=== PATIENT | male | born 1945 | race Caucasian/White ===

== ENCOUNTER 2016-07-01 11:15 | Emergency (ER) | payer OTHER ==
--- NOTE | 2016-07-01 11:41 | ER Document Report ---
ED Medical Screen (RME) - General Chief Complaint: Difficulty Swallowing Stated Complaint: HEARTBURN Time seen by provider: 11:39 Notes: 71-year-old man presents to ED due to heartburn last night. 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 States she's having difficulty swallowing this morning and is concerned if he vomits he might aspirate. States cannot even keep down a small sip of water. I have greeted and performed a rapid initial assessment of this patient. A comprehensive ED assessment and evaluation of the patient, analysis of test results and completion of medical decision making process will be conducted by an additional ED providers. Physical Exam - Vital signs Vitals: Temp Pulse Resp BP Pulse Ox 100.1 F 112 H 18 146/78 H 96 07/01/16 11:36 07/01/16 11:36 07/01/16 11:36 07/01/16 11:36 07/01/16 11:36 Course - Vital Signs Vital signs: Temp Pulse Resp BP Pulse Ox 100.1 F 112 H 18 146/78 H 96 07/01/16 11:36 07/01/16 11:36 07/01/16 11:36 07/01/16 11:36 07/01/16 11:36
[2016-07-01 12:21] LABS: HEMATOCRIT 42.8 % (37.9-51.0); HEMOGLOBIN 14.4 g/dL (13.5-17.0); HGB HCT DIFFERENCE 0.4; MEAN CORPUSCULAR HEMOGLOBIN 32.5 pg (27.0-33.4); MEAN CORPUSCULAR HGB CONC 33.5 g/dL (32.0-36.0); MEAN CORPUSCULAR VOLUME 97 fl (80-97); RED BLOOD COUNT 4.42 10^6/uL (4.35-5.55); RED CELL DISTRIBUTION WIDTH 13.5 % (11.5-14.0); WHITE BLOOD COUNT 16.6 10^3/uL (4.0-10.5)
[2016-07-01 12:39] LABS: ALANINE AMINOTRANSFERASE 24 U/L (21-72); ALBUMIN 4.2 g/dL (3.5-5.0); ALKALINE PHOSPHATASE 66 U/L (38-126); ANION GAP 11 (5-19); ASPARTATE AMINO TRANSFERASE 20 U/L (17-59); BILIRUBIN,TOTAL 1.4 mg/dL (0.2-1.3); BLOOD UREA NITROGEN 15 mg/dL (7-20); CALCIUM 9.5 mg/dL (8.4-10.2); CARBON DIOXIDE 27 mmol/L (22-30); CHLORIDE 102 mmol/L (98-107); CREATININE RESULT 1.22 mg/dL (0.52-1.25); GLUCOSE 106 mg/dL (75-110); POTASSIUM 4.5 mmol/L (3.6-5.0); SODIUM 140.1 mmol/L (137-145); TOTAL PROTEIN 6.9 g/dL (6.3-8.2)
[2016-07-01] MEDS ORDERED: ACETAMINOPHEN SOLN 325 MG/10.15 ML UDCUP PO ONE (12:54)
[2016-07-01 12:57] LABS: BAND NEUTROPHILS % (MANUAL) 3 % (3-5); BASOPHILS % (MANUAL) 0 % (0-2); EOSINOPHILS % (MANUAL) 0 % (0-6); LYMPHOCYTES % (MANUAL) 2 % (13-45); TOTAL CELLS COUNTED 100
[2016-07-01 13:00] LABS: OVALOCYTES SLIGHT
--- NOTE | 2016-07-01 13:08 | ER Document Report ---
ED General - General Chief Complaint: Difficulty Swallowing Stated Complaint: HEARTBURN Notes: This is a 71-year-old male who presents complaining of severe heartburn which are last night after eating at a [place] restaurant and having 3 beers. His also had heartburn. Patient did not vomit the states is very nauseated and had a sore burning sensation in his throat all night. He is worried because his history of tonsillar cancer it in 2011 status post chemo, radiation. He states he cannot swallow this morning. He states his voice sounds different. He denies shortness of breath. TRAVEL OUTSIDE OF THE [place] IN LAST 30 DAYS: No - Related Data Allergies/Adverse Reactions: No Known Allergies Allergy (Unverified 07/01/16 12:41) Past Medical History - Social History Smoking Status: Former Smoker Frequency of alcohol use: Occasional Drug Abuse: None Lives with: Spouse/Significant other Family History: Reviewed & Not Pertinent Patient has suicidal ideation: No Patient has homicidal ideation: No Renal/ Medical History: Denies: Hx Peritoneal Dialysis Past Surgical History: Reports: Hx Cholecystectomy Review of Systems - Review of Systems Constitutional: Chills, Fever EENT: Nose congestion, Throat pain, Difficulty swallowing, Throat swelling. denies: Mouth pain Cardiovascular: denies: Chest pain, Syncope Respiratory: denies: Short of breath Gastrointestinal: Nausea. denies: Abdominal pain, Vomiting Genitourinary: denies: Burning Musculoskeletal: denies: Muscle stiffness Neurological/Psychological: denies: Numbness, Tingling Physical Exam - Vital signs Vitals: Temp Pulse Resp BP Pulse Ox 100.1 F 112 H 18 146/78 H 96 07/01/16 11:36 07/01/16 11:36 07/01/16 11:36 07/01/16 11:36 07/01/16 11:36 - General General appearance: Appears well, Alert In distress: None - Hoarse voice noted, no stridor - HEENT Head: Normocephalic Pupils: PERRL Ears: Normal Tympanic membrane: Normal Sinus: Normal Nasal: Normal Mouth/Lips: Normal Mucous membranes: Normal Pharynx: Erythema. No: Peritonsillar abscess, Tonsillar hypertrophy, Uvular edema Neck: Other - Post radiation changes - Respiratory Respiratory status: No respiratory distress Breath sounds: Normal - Cardiovascular Rhythm: Regular, Tachycardia - Abdominal Inspection: Normal Tenderness: Nontender - Back Back: Normal - Extremities General upper extremity: Normal inspection General lower extremity: Normal inspection - Neurological Neuro grossly intact: Yes Orientation: AAOx4 - Psychological Associated symptoms: Anxious - Skin Skin Temperature: Warm Skin Moisture: Dry Skin Color: Normal Course - Re-evaluation Re-evalutation: 07/01/16 15:[address] Green at [facility] who will see pt in [facility] ER. 07/01/16 18:07 Patient is medically stable at this time for transport. Vitals reviewed. Patient standing up in the room talking in his shirt. No respiratory distress. - Vital Signs Vital signs: Temp Pulse Resp BP Pulse Ox 98.3 F 112 H 19 108/60 95 07/01/16 17:00 07/01/16 11:38 07/01/16 17:01 07/01/16 17:01 07/01/16 17:01 - Laboratory Result Diagrams: 07/01/16 12:00 07/01/16 12:00 Laboratory results interpreted by me: 07/01/16 07/01/16 07/01/16 12:00 12:00 12:00 WBC 16.6 H Seg Neuts % (Manual) 91 H Lymphocytes % (Manual) 2 L Monocytes % (Manual) 2 L Abs Neuts (Manual) 15.6 H Est GFR (Non-Af Amer) 58 L Total Bilirubin 1.4 H Creatine Kinase 54 L - Diagnostic Test Radiology reviewed: Image reviewed, Reports reviewed - EKG Interpretation by Me EKG shows normal: Sinus rhythm [place]/QRS: LBBB - no old EKG for comparison Discharge - Discharge Clinical Impression: Acute epiglottiditis Qualifiers: Airway obstruction: without obstruction Qualified Code(s): J05.10 - Acute epiglottitis without obstruction Condition: Stable Disposition: [facility]
[2016-07-01] MEDS ORDERED: NORMAL SALINE 1000 ML 1,000 ML IV ONE (13:14)
[2016-07-01 13:37] LABS: CREATINE KINASE MB 0.32 ng/mL (<4.55)
[2016-07-01 13:39] LABS: TROPONIN I < 0.012 ng/mL
[2016-07-01] MEDS ORDERED: DEXAMETHASONE SOD PHOS INJ 10 MG/1 ML VIAL IV ONE (14:35)
[2016-07-01] MEDS ORDERED: CEFTRIAXONE INJ 500 MG VIAL IV ONE (14:45)
--- NOTE | 2016-07-01 15:48 | EKG REPORT ---
SEVERITY:- ABNORMAL ECG - SINUS RHYTHM LEFT BUNDLE BRANCH BLOCK : Confirmed by: Niesha Ag 01-Jul-2016 15:47:34
[2016-07-01 17:39] VITALS: BP 108/60
== END 2016-07-01 18:10 | disposition short-term general hospital (02) ==
LOC: ER 11:15
DX: J05.10 Acute epiglottitis without obstruction (principal); R06.02 Shortness of breath; R12 Heartburn; Z87.891 Personal history of nicotine dependence
CPT/HCPCS: 93005; 99285; 96361; 96375; 96365; 36415; 87040; 82553; 82550; 85025; 87077; 80053; 84484; 71020; 70491; 71260; 93010; J0696; J7030; J1100; J3490; 87186

== ENCOUNTER → 2019-12-28 | Outpatient (CLI) | payer MEDICARE, OTHER ==
--- NOTE | 2019-12-28 18:01 | RADIOLOGY REPORT (SQ) ---
EXAM DESCRIPTION: CT SOFT TISSUE NECK WITH IMAGES COMPLETED DATE/TIME: 12/28/2019 2:44 pm REASON FOR STUDY: R22.1 LOCALIZED SWELLING, MASS AND LUMP, NECK R22.1 LOCALIZED SWELLING, MASS AND LUMP, NECK COMPARISON: CT soft tissue neck 07/01/2016 TECHNIQUE: Post IV contrasted scanning from skull base through lung apices with review of bone, soft tissue and lung windows. Reconstructed coronal and sagittal MPR images reviewed. All images stored on PACS. All CT scanners at this facility use dose modulation, iterative reconstruction, and/or weight based d osing when appropriate to reduce radiation dose to as low as reasonably achievable (ALARA). [facility]: Dose Right [facility]: CareDose [facility]: Dose Right [facility]: Teradose 4D [facility]: On The Bill CONTRAST TYPE AND DOSE: contrast/concentration: Isovue 350.00 mmol/ml; Total Contrast Delivered: 75. 0 ml; Total Saline Delivered: 55.0 ml RENAL FUNCTION: Creatinine 1.2 RADIATION DOSE: 19 mGy LIMITATIONS: None. FINDINGS: SKULL BASE: Inferior brain parenchyma unremarkable MAJOR SALIVARY GLANDS: Fatty atrophy of the left parotid gland similar compared to 2017. Remainder t he salivary glands are otherwise unremarkable LYMPHADENOPATHY: No adenopathy. MUCOSAL MASSES OR ASYMMETRY: No mucosal masses or asymmetry. LARYNX/CORDS: Very mild thickening of the epiglottis and aryepiglottic folds VASCULAR STRUCTURES: The major vessels are patent. LUNG APICES: Clear. BONES: Multilevel degenerative disc changes with bilateral foraminal narrowing at C5-6 C6-7 THYROID: Normal size. No masses. PARANASAL SINUSES: Clear. OTHER: No other significant finding. IMPRESSION: No bulky neck masses or adenopathy. Thickening of the epiglottis and supraglottic laryngeal structures TECHNICAL DOCUMENTATION: JOB ID: [id number] Quality ID # [id number]: Final reports with documentation of one or more dose reduction techniques (e.g., Au tomated exposure control, adjustment of the mA and/or kV according to patient size, use of iterative reconstruction technique) 2010 [employer]- All Rights Reserved Reading location - IP/workstation name: [id number]
== END ==
LOC: RAD 13:53
PROVIDERS: ATTEND Otolaryngology
DX: K11.0 Atrophy of salivary gland (principal); M50.323 Other cervical disc degeneration at C6-C7 level
CPT/HCPCS: 70491; 82565